=== PATIENT | male | born 1945 | race Caucasian/White ===

== ENCOUNTER 2017-06-21 14:36 | Emergency (ER) | payer OTHER ==
--- NOTE | 2017-06-21 14:41 | PDOC ---
History of Present Illness - General Chief Complaint: Poison [place],Poison [place] Exposure Stated Complaint: RASH Time Seen by Provider: 06/21/17 14:41 History Source: Patient Exam Limitations: No Limitations - History of Present Illness Initial Comments: 06/21/17 15:01 72 y/o male pulling out wan last Thursday developed itching to left arm and leg, developed poison [place]. However left leg is not getting better. Iching has improved, but weeping and red. No fever or chills. Feels fine otherwise. No swelling. Severity: Yes: mild Associated Symptoms: reports: rash. denies: blisters, fever Past History - Past Medical History Allergies/Adverse Reactions: Allergies Allergy/AdvReac Type Severity Reaction Status Date / Time No Known Allergies Allergy Verified 06/21/17 14:39 Home Medications: Ambulatory Orders Cephalexin Monohydrate [Keflex -] 500 mg PO Q8H #21 capsule 06/21/17 Cholecalciferol (Vitamin D3) [Vitamin D3] 1,000 unit PO DAILY 06/21/17 Cyanocobalamin (Vitamin B-12) [Vitamin B12] 5,000 mcg PO DAILY 06/21/17 Pravastatin Sodium 20 mg PO HS 06/21/17 Prednisone [Deltasone] 20 mg PO BID #6 tablet 06/21/17 Review of Systems - Review of Systems Able to Perform ROS?: Yes Is the patient limited [place] proficient: No Constitutional: No: Chills, Fever Respiratory: No: Cough, Shortness of Breath Cardiac (ROS): No: Chest Pain, Palpitations : No: Burning, Dysuria Musculoskeletal: No: Muscle Pain Integumentary: Yes: Erythema, Rash All Other Systems: Reviewed and Negative *Physical Exam - Physical Exam General Appearance: Yes: Nourished, Appropriately Dressed. No: Apparent Distress HEENT: positive: EOMI, JEFRY, Normal ENT Inspection, Normal Voice, Symmetrical, Pharynx Normal Neck: positive: Trachea midline, Normal Thyroid, Supple. negative: Tender, Rigid Respiratory/Chest: positive: Lungs Clear, Normal Breath Sounds. negative: Chest Tender, Respiratory Distress Cardiovascular: positive: Regular Rhythm, Regular Rate, S1, S2. negative: Edema Vascular Pulses: Femoral (R): 4+, Femoral (L): 4+, Carotid (R): 4+, Carotid (L) : 4+, Dorsalis-Pedis (R): 4+, Doralis-Pedis (L): 4+ Gastrointestinal/Abdominal: positive: Flat, Soft Lymphatic: negative: Adenopathy, Tenderness, Other Musculoskeletal: positive: Normal Inspection. negative: CVA Tenderness Extremity: positive: Normal Capillary Refill, Normal Range of Motion. negative : Normal Inspection (left leg with erythema, oozing clear liquid, no tenderness , swelling. Mild warmth. No septic joint. Pulses 2+/4 b/l in LE, no focal deficits noted), Tender, Swelling, Calf Tenderness Integumentary: positive: Normal Color, Dry, Warm, Rash (left leg with erythema) . negative: Hives, Swelling, Ecchymosis Neurologic: positive: facility rehab director II-XII NML intact, Fully Oriented, Alert, Normal Mood/ Affect, Normal Response, Motor Strength 07/04 ED Treatment Course - ADDITIONAL ORDERS Additional order review: 06/21/17 15:06 Left leg with contact dermatitis, with superinfection. Will cover for Cellulitis Pt is in agreement with plan Progress Note - Progress Note Progress Note: Will place on Prednisone and Keflex for super infection/poison [place]. Pt is in agreement with plan. Leg will be marked to see if gets worse *DC/Admit/Observation/Transfer Diagnosis at time of Disposition: Cellulitis and abscess of left leg, Poison [place] - Discharge Dispostion Disposition: HOME Condition at time of disposition: Good Admit: No - Referrals Referrals: Valentin Baumann MD [Primary Care Provider] - - Patient Instructions Printed Discharge Instructions: DI for Cellulitis -- Adult, DI for Poison [place] Allergy Additional Instructions: Keep clean Benadryl 25 mg every 6 hr as needed Keflex 500mg 3x/day for 7 days Prednisone 20 mg 2x/day for 3 days If worsen return to ER - Post Discharge Activity
[2017-06-21 15:08] VITALS: BP 147/84; PULSE 65; TEMP 98.4; BMI 30.5
== END 2017-06-21 15:17 | disposition home or self-care (01) ==
LOC: FER 14:36
DX: L03.116 Cellulitis of left lower limb (principal); L02.416 Cutaneous abscess of left lower limb; L23.7 Allergic contact dermatitis due to plants, except food
CPT/HCPCS: 99281-25